=== PATIENT | male | born 1985 | race African-American/Black ===

== ENCOUNTER 2019-08-12 23:26 | Emergency (ER) | payer MEDICAID ==
[~2019-08-12] VITALS: Ht 193 cm; Wt 114.0 kg
[2019-08-13] MEDS ORDERED: BACITRACIN ZINC OINT UDPKT TOP ONE (01:00)
[2019-08-13] MEDS ORDERED: LIDOCAINE HCL/PF 1% 10 MG/ML 5ML VIAL IJ ONE (01:00)
[2019-08-13] MEDS ORDERED: HYDROCODONE/ACETAMINOPHEN 5/325MG TABLET PO ONE ×2 (01:00→03:00)
[2019-08-13] MEDS ORDERED: BACITRACIN 15GM TUBE TOP NR (01:30)
[2019-08-13 03:29] VITALS: BP 136/79
== END 2019-08-13 03:40 | disposition home or self-care (01) ==
LOC: ER 23:26
DX: L02.213 Cutaneous abscess of chest wall (principal); J45.909 Unspecified asthma, uncomplicated; F17.200 Nicotine dependence, unspecified, uncomplicated
CPT/HCPCS: 10060; 99284; J3490; Z7610